=== PATIENT | male | born 1980 ===

== ENCOUNTER 2021-03-14 01:56 | Outpatient (CLI) | payer BC, SELFPAY ==
[2021-03-14 10:36] LABS: Source Nasal/Nares
[2021-03-14 22:33] LABS: COVID-19 PCR Negative (Negative)
== END 2021-03-14 01:57 | disposition home or self-care (01) ==
LOC: LBO 01:57
PROVIDERS: Visit Provider Urology
DX: Z20.822 Contact with and (suspected) exposure to COVID-19 (principal)
CPT/HCPCS: 87635

== ENCOUNTER 2021-03-17 06:15 | Day surgery (SDC) | payer BC, SELFPAY ==
[2021-03-17] VITALS (14 sets, daily range): BP systolic 122–152; BP diastolic 79–105; PULSE 64–83; RESP 14–21; TEMP 36.4–36.8; O2SAT 95–99
--- NOTE | 2021-03-17 06:52 | ANES.PREOP_ITS ---
General Info Date of Service Date Performed: 03/17/21 Height: 5 ft 6.14 in Weight: 87.7 g Body Mass Index (BMI): 0.0 Surgical Procedure: Operation Date: 03/17/21 07:40 Proposed Procedures Side Surgeon p Circumcision Otto Car MD Meds Allergies and Home Medications Allergies Allergy/AdvReac Type Severity Reaction Status Date / Time No Known Allergies Allergy Verified 03/13/21 10:31 Home Medication Medication Instructions Recorded dulaglutide 1.5 mg/0.5 mL 1.5 mg SUBCUT QWEEK 01/23/21 subcutaneous pen injector metformin 500 mg tablet 500 mg PO BID 01/23/21 Current Visit Medications: Current Medications Generic Name Dose Route Start Last Admin Trade Name Freq PRN Reason Stop Dose Admin Ringer's Solution 1,000 mls @ 80 mls/hr 03/17/21 06:00 IV 04/13/21 23:59 INFUSION DICK Cefazolin Sodium/Dextrose 2 gm in 50 mls @ 100 mls/hr 03/17/21 06:00 Ancef Duplex IVPB 04/13/21 23:59 PREOP DICK IV Miscellaneous Supplies 1 each 03/17/21 06:00 Iv Access IV 04/13/21 23:59 DIRECTED DICK Sodium Chloride 0 ml 03/17/21 06:00 Normal Saline Flush 10 Ml Syr IV 04/13/21 23:59 PRN PRN Sodium Chloride 0 ml 03/17/21 06:00 Normal Saline 10 Ml Vial IJ 04/13/21 23:59 DIRECTED PRN Sterile Water 0 ml 03/17/21 06:00 Water,Injection,Sterile 10 Ml Vial IJ 04/13/21 23:59 DIRECTED PRN FOR[facility]LY [facility] Medical History Medical History Diabetes mellitus type 2 with retinopathy Erectile dysfunction Rash Tinea pedis Tobacco Smoking/Tobacco Use Status: Never Alcohol Alcohol Intake: current Alcohol intake frequency: holidays/special occasions only Substance Use Substance use: Never Substance use type: does not use Vital Signs and Lab Results Vital Signs Most Recent Vital Signs in EMR: Most Recent Vital Signs Temp Pulse Resp BP Pulse Ox 36.7 C 83 16 130/91 H 98 03/17/21 06:28 03/17/21 06:28 03/17/21 06:28 03/17/21 06:28 03/17/21 06:28 Lab Results Blood Type / Crossmatch: No Data to Display Complete Blood Count: No Data to Display Complete Metabolic Panel: No Data to Display Liver Function Panel: No Data to Display Coagulation Panel: No Data to Display Cardiac Panel: No Data to Display Arterial Blood Gas: No Data to Display Venous Blood Gas: No Data to Display Pancreas Panel: No Data to Display Thyroid Panel: No Data to Display Infectious Disease: Coronavirus (COVID-19)(PCR) Negative (Negative) 03/14/21 08:58 03/14/21 Coronavirus 2019 Source Nasal/nares 03/14/21 08:58 03/14/21 Blood Cultures: No Data to Display Toxicology Panel: No Data to Display Anesthesia Assessment and Plan Anesthesia History Personal History: No History of Anesthesia Complications Family History: No Family History of Anesthesia Complications Exercise Tolerance Exercise Tolerance: Metabolic Equivalents>4 Pertinent Negatives Pertinent Negatives: No Symptoms of GERD, No Major Cardiovascular Symptoms or Complaints, No Major Pulmonary Symptoms or Complaints and No History of CVA/TIA Cardiac & Pulmonary Exam Cardiac Exam: Normal S1/S2 Heart Sounds Pulmonary Exam: Clear Bilateral Breath Sounds Airway Exam Known Difficult Airway: No Mallampati Class: 1 Mouth Opening: Normal (> 3cm) Thyromental Distance: Greater than 3 cm Neck Range of Motion: Full ROM Neck Circumference: Normal Teeth Condition: Normal Dentition ASA Classification ASA Score: ASA 2 ASA Emergency: No NPO Status NPO Status: NPO Clears >2 hours, Solids >8 hours Anesthesia Plan Anesthesia Technique: General Anesthesia Airway Planned: LMA Monitors Used: Standard Monitors
[2021-03-17] MEDS: Lactated Ringers 1,000 ML 80 ML IV (06:55)
--- NOTE | 2021-03-17 06:58 | W.PM.HP.N ---
Assessment and Plan Assessment and plan (1) Phimosis: Status: Acute Assessment and plan: For circumcision. We were unable to access the translating service this morning. The patient's acted as our excavator operator and all questions were answered. History of Present Illness History of Present Illness Chief Complaint: Phimosis Narrative: This is a 40-year-old gentleman who is referred by Odalys Sotelo for issues with erectile dysfunction. Apparently, this gentleman was uncomfortable discussing his issues with a female provider, so his medical records were not really able to describe the situation. He describes pain, scarring and cracks/cuts in the foreskin whenever he obtains an erection. He has been able to retract the foreskin over the glans, but at times, he has been unable to put the foreskin back and has developed swelling and pain on the glans. He has had some difficulty obtaining an erection, but he believes this is related to the anticipation of pain related to the foreskin issue. He does admit to some occasional right testicular discomfort. When the testicular discomfort occurs, he also has some discomfort in the perineum and buttock region. He has not had any dysuria. He has no gross hematuria. He does not notice any association of the pain with particular activities. He does have a history of diabetes. He tells me that when he used Monistat cream, the cuts on the foreskin improved, but the scar remains. He has had no issues with anesthesia in the past. He has no known bleeding disorders. He does admit that he does not heal very quickly. Review of Systems No fevers or chills No vision change or dysphasia Diabetes with recent A1C of 11. No thyroid dysfunction. No shortness of breath, cough or hemoptysis No chest pain or palpitations No nausea, vomiting, hepatitis, ulcers, jaundice, diarrhea or constipation No seizures, strokes or peripheral neuropathy No bleeding disorders or anemia Multiple fractures in past. No gout. [facility] Medical History (Updated 03/17/21 @ 06:59 by Otto Car MD) Diabetes mellitus type 2 with retinopathy Erectile dysfunction Phimosis Rash Tinea pedis Social History Smoking/Tobacco Use Status: Never Smoking risk assessment performed?: Yes Alcohol Intake: current Alcohol Intake frequency: holidays/special occasions only Drug use: Never Substance use type: does not use Do you feel safe at home: Yes Do you feel safe in your relationship?: Yes Additional Social history: Unable to assess privately with spouse present Meds Allergies and Home Medications Allergies Allergy/AdvReac Type Severity Reaction Status Date / Time No Known Allergies Allergy Verified 03/13/21 10:31 Home Medications Medication Instructions Recorded Confirmed Type dulaglutide 1.5 mg/0.5 mL 1.5 mg SUBCUT QWEEK 01/23/21 03/17/21 History subcutaneous pen injector metformin 500 mg tablet 500 mg PO BID 01/23/21 03/17/21 History Exam Const General: cooperative, comfortable and no acute distress Neck Neck: supple Resp Effort & Inspection: normal respiratory effort Auscultation: clear to auscultation bilaterally Cardio Rate: regular rate Rhythm: regular rhythm GI Inspection: normal to inspection Palpation: soft Penis: other (tight band just distal to coronal sulcus makes retraction of skin difficult) Neuro General: patient alert, patient awake and patient oriented x3 Results Last Vital Signs Temp 36.7 C 03/17/21 06:28 Pulse 83 03/17/21 06:28 Resp 16 03/17/21 06:28 BP 130/91 H 03/17/21 06:28 Pulse Ox 98 03/17/21 06:28 COVID-19 Screening Have you, or household traveled for leisure in last 14 days?: No Had IN PERSON contact w/suspected or confirmed C-19 person: No
[2021-03-17] MEDS: ceFAZolin 2 GM/50 ML BAG IVPB (07:35)
[2021-03-17] MEDS: Bupivacaine 0.5% Pres-Free 30 ML VIAL (08:13)
--- NOTE | 2021-03-17 08:22 | W.PM.DSUDISC ---
Discharge Plan Disposition Patient Disposition: HOME Condition: Stable Discharge Details Reason For Visit: circumcision Attending Provider: Otto Car Primary Care Provider: Unknown,Unknown Home Meds and New Rx's Prescriptions: New tramadol 50 mg tablet 50 mg PO Q6H PRN (Reason: pain) Qty: 20 RF: 0 No Action Trulicity 1.5 mg/0.5 mL pen injector 1.5 mg subcut QWEEK RF: 0 metformin 500 mg tablet 500 mg PO BID RF: 0 Discharge Instructions Additional Instructions: OK to shower and remove dressing tomorrow (dressing may come off on its own before that) apply OTC bacitracin prn Followup 3 to 4 weeks Activity:: no straining/lifting over 20 pounds for @ 48 hours Remove Dressings/Wound Care:: 24 hours Shower/Bathe:: 24 hours Diet:: As Tolerated Discharge Orders Discharge Orders: Discharge Order (Routine); Ordered 03/17/21 Ordered By: Otto Car DS: Diagnosis Discharge Diagnosis (1) Phimosis: Status: Acute
--- NOTE | 2021-03-17 08:29 | W.PM.OP ---
Date of service: 03/17/21 Time of Service: 08:29 Operative Note Operative Note DATE OF PROCEDURE: 03/17/21 PRE-OP DIAGNOSIS: Phimosis POST-OP DIAGNOSIS: same PROCEDURE: circumcision SURGEON: Otto Car ANESTHESIA TYPE: General LMA/ETT Refer to Anesthesia Record ESTIMATED BLOOD LOSS: 25 PATHOLOGY: none sent COMPLICATIONS: None Patient was transported to: PACU Patient's condition: stable Implants: None Indications: This is a 40-year-old gentleman has a history of scarring along the foreskin. The scarring makes it difficult to retract the skin and causes pain with an erection. He presents for circumcision Findings: Phimosis Procedure Description: The patient was brought to the operating room on 03/17/2021. He was given preoperative IV antibiotics. After successful induction of general anesthesia, he was placed in the supine position. His genitalia was prepped and draped. A penile ring block was performed with quarter percent Marcaine. A circumferential incision was made on the outer aspect of the foreskin at the level of the coronal sulcus. A second circumferential incision was made on the inner aspect of the foreskin approximately 2 cm from the coronal sulcus. The 2 incisions were interconnected and the redundant foreskin was removed. Any bleeding points that were encountered were cauterized using the Bovie. The skin edges were then reapproximated using a series of simple interrupted 4-0 chromic sutures. A dorsal penile nerve block was then performed using quarter percent Marcaine. A Xeroform gauze was then applied to the incision site. The patient tolerated the procedure well with no complications.
--- NOTE | 2021-03-17 08:38 | NUR.NOTE ---
Nursing Note: Attempted to use the language line via both the facetime and audio models but each time was unsuccessful. Both audio and video would not maintain connection and disconnected repeatedly. For this reason, pt's was used to translate for the majority of the admission with the pt's permission.
[2021-03-17] MEDS: Insulin REGULAR-Human 100 UNITS/ML UNIT 6 UNITS SC (08:48)
[2021-03-17] MEDS: Insulin REGULAR-Human 100 UNITS/ML UNIT 12 UNITS SC (09:28)
[2021-03-17] MEDS: Insulin REGULAR-Human 100 UNITS/ML UNIT 15 UNITS SC (10:50)
--- NOTE | 2021-03-19 06:57 | ANES.POST_ITS ---
Postoperative Evaluation Date, Time and Location Date Performed: 03/17/21 Time Performed: 12:00 Patient Location: Day Surgery Unit Vital Signs Most Recent Imported Vital Signs: Most Recent Vital Signs Temp Pulse Resp BP Pulse Ox 36.4 C L 71 16 133/98 H 95 03/17/21 11:30 03/17/21 11:30 03/17/21 11:30 03/17/21 11:30 03/17/21 11:30 Pain Score Most Recent Pain Score: Most Recent Pain Score Pain Level 0 03/17/21 11:30 Assessment Mental Status: Awake (Alert & Oriented to Patient Baseline) Airway and Respiratory Function: Patent airway with normal (patient baseline) respiratory exam Cardiovascular Function: Hemodynamically Stable Hydration Status: Adequately Hydrated Nausea & Vomiting: No Nausea or Vomiting Pain: Pt. Denies Any Pain Peripheral Nerve Block: Patient did not receive a nerve block Teaching Patient Teaching: Advised to seek followup for the following concerns (See ex planation) (Diabetes) Concerns: Poorly Controlled Diabetes
== END 2021-03-17 11:50 | disposition home or self-care (01) ==
PROVIDERS: Visit Provider Urology
PROC: (CPT 54161; principal; 2021-03-17 07:30)
DX: N47.1 Phimosis (principal); E11.319 Type 2 diabetes mellitus with unspecified diabetic retinopathy without macular edema
CPT/HCPCS: 54161; J0131; J0690; J1100; J1885; J2001; J2250; J2405